=== PATIENT | female | born 1985 | race Caucasian/White ===

== ENCOUNTER 2017-06-28 20:21 | Emergency (ER) | payer OTHER ==
[~2017-06-28] VITALS: Ht 170.2 cm; Wt 101.0 kg
[2017-06-28 20:23] VITALS: BP 140/85; PULSE 85; RESP 16; TEMP 98.1; O2SAT 98
[2017-06-28] MEDS ORDERED: ACETAMINOPHEN/HYDROcodone 325 MG/5 MG TAB PO ONE (20:45)
[2017-06-28] MEDS ORDERED: NEOMYCIN/POLYMYXIN/HYDROCORT OTIC SUSP 10 ML BTL RIGHT EAR SCH (20:45)
[2017-06-28] MEDS ORDERED: NORC5TAB PO (20:48)
[2017-06-28] MEDS ORDERED: CORTI10A LEFT EAR (20:48)
--- NOTE | 2017-06-28 20:48 | PD ---
HPI . Earache Chief Complaint: ENT Complaint Time Seen by Provider: 20:40 Travel History International Travel<30 days: No Contact w/Intl Traveler<30days: No Traveled to known affect area: No History of Present Illness HPI This patient presents with a left earache for the last 2 or 3 days. She states that it became acutely worse today causing her to present to the emergency department. She denies any fever or cold symptoms. Pain is moderate. Pain is exacerbated by cold air. PFSH Past Medical History Medical History: Denies Significant Hx Diminished Hearing: No ?: Not Past Surgical History Surgical History: No Previous Surgery Social History Alcohol Use: No Tobacco Use: No Substance Use: No Allergies-Medications (Allergen,Severity, Reaction): Coded Allergies: No Known Allergies (Unverified , 06/28/17) Review of Systems Except as stated in HPI: all other systems reviewed are Neg General / Constitutional: No: Fever, Chills HENT: Positive: Earache, No: Sore Throat, Rhinorrhea, Congestion Physical Exam Narrative GENERAL: Awake and alert and in no acute distress. SKIN: Warm and dry. HEAD: Normocephalic/atraumatic. No facial swelling. EYES: Pupils are equal. Extraocular movements are intact. ENT: She has pain with movement of the left ear. Her left see is swollen. The tympanic membrane is shiny with good light reflex. Her right ear is normal. NECK: Normal range of motion. No cervical lymphadenopathy. CARDIOVASCULAR: Regular rate and rhythm. RESPIRATORY: Nonlabored respirations. MUSCULOSKELETAL: Atraumatic. NEUROLOGICAL: Nonfocal. PSYCHIATRIC: Appropriate mood and affect. Data Data Last Documented VS Vital Signs Date Time Temp Pulse Resp B/P (MAP) Pulse Ox O2 Delivery O2 Flow Rate FiO2 06/28/17 20:23 98.1 85 16 140/85 (103) 98 Room Air Orders Orders Frnqzkml-Aefaokhd-Jj Otic Susp ([place] (06/28/17 20:45) Acetamin-Hydrocod 325-5 Mg ([place] 5-325 (06/28/17 20:45) MDM Medical Decision Making Medical Screen Exam Complete: Yes Emergency Medical Condition: Yes Differential Diagnosis Differential diagnosis of ear pain includes eustachian tube dysfunction, otitis externa, otitis media, TMJ syndrome Narrative Course This patient presents with left ear pain. She has otitis externa by exam. Diagnosis Primary Impression: Otitis externa Qualified Codes: H60.502 - Unspecified acute noninfective otitis externa, left ear Patient Instructions: General Instructions, Otitis Externa (DC) Med/Other Pt SpecificInfo: Prescription(s) given Scripts Hydrocodone-Acetaminophen ([place]) 5 Mg-325 Mg Tab 1 TAB PO Q4H Y for PAIN, #12 TAB 0 Refills Prov: Alyson Clay MD 06/28/17 Wmonsssl-Vwlqhcuvv-BN Otic Drops (Rzqjrxla-Acewhiasl-BZ Otic Drops) 1 % Soln 4 DROP LEFT EAR QID for Infection, #1 BOTTLE 0 Refills Prov: Alyson Clay MD 06/28/17 Disposition: 01 DISCHARGE HOME Condition: Stable Alyson Clay MD Jun 28, 2017 20:48
[2017-06-29] MEDS ORDERED: NEOMYCIN/POLYMYXIN/HYDROCORT OTIC SOLN 10 ML BTL RIGHT EAR SCH
== END 2017-06-28 21:19 | disposition home or self-care (01) ==
LOC: EDSEX 20:21 → NEPD 20:21
DX: H60.502 Unspecified acute noninfective otitis externa, left ear (principal)
CPT/HCPCS: 99283